=== PATIENT | female | born 1995 | race Caucasian/White ===

== ENCOUNTER 2020-02-18 18:03 | Emergency (ER) | payer OTHER | END 2020-02-18 19:21 | disposition home or self-care (01) | LOC: ERS 18:03 | DX: B34.9 Viral infection, unspecified (principal); F90.9 Attention-deficit hyperactivity disorder, unspecified type | CPT/HCPCS: 87804; 99283; U0001 ==

== ENCOUNTER 2021-07-21 05:40 | Emergency (ER) | payer OTHER, SELFPAY ==
[2021-07-21 07:16] LABS: #Basophils 0.1 thou/uL (0.0-0.2); #Monocytes 0.2 thou/uL (0.11-0.59); #Neutrophils 2.7 thou/uL (1.40-6.50); %Basophils 2.4 % (0.0-1.0); %Eosinophils 1.1 % (0.0-10.0); %Lymphocytes 24.4 % (21.0-51.0); %Monocytes 5.7 % (0.0-10.0); %Neutrophils 66.4 % (42.0-75.0); Hemoglobin 14.2 g/dL (12.0-16.0); Mean Corpuscular HGB CONC 34.1 g/dL (32.0-36.0); Mean Corpuscular Hemoglobin 30.5 pg (27.0-31.0); Mean Corpuscular Volume 89.6 fL (78.0-98.0); Mean Platelet Volume 7.2 fL (7.4-10.4); Platelet Count 138 thou/uL (130-400); RBC Distribution Width 11.9 % (11.5-14.5); Red Blood Cell (RBC) Count 4.66 mill/uL (4.20-5.40)
[2021-07-21 07:21] LABS: BHCG - Serum Negative (NEGATIVE); Pregs Control Background? CLEAR/WHITE (CLR/WHITE); Pregs Control Bar Appear? YES (CONTROL BAR)
[2021-07-21] MEDS ORDERED: Acetaminophen 500 MG TAB ONE (07:23)
[2021-07-21 07:35] LABS: ALT (SGPT) 21 U/L (8-55); AST (SGOT) 21 U/L (5-34); Albumin 4.1 g/dL (3.5-5.0); Alkaline Phosphatase 69 U/L (40-110); Anion Gap 12 mmol/L (10-20); BUN (Urea Nitrogen) 10 mg/dL (7.0-18.7); Bilirubin, Total 0.2 mg/dL (0.2-1.2); Calc. Creatinine Clearance 0 mL/min (70-130); Calcium 8.8 mg/dL (7.8-10.44); Carbon Dioxide 23 mmol/L (22-29); Chloride 104 mmol/L (98-107); Globulin 3.4 g/dL (2.4-3.5); Glucose 91 mg/dL (70-105); Potassium 4.2 mmol/L (3.5-5.1); Protein, Total 7.5 g/dL (6.0-8.3); Sodium 135 mmol/L (136-145)
[2021-07-21] MEDS ORDERED: Iopamidol-370 76% 500 ML 1 ML ONE (13:20)
== END 2021-07-21 09:10 | disposition home or self-care (01) ==
LOC: ERS 05:40
DX: U07.1 COVID-19 (principal); J45.909 Unspecified asthma, uncomplicated; Z79.899 Other long term (current) drug therapy
CPT/HCPCS: 36415; 71275; 80053; 84484; 84703; 85025; 93005; Q9967

== ENCOUNTER 2022-11-18 10:18 | Outpatient (CLI) | payer BC | END 2022-11-18 10:19 | disposition home or self-care (01) | LOC: DTY/OP 10:18 | PROVIDERS: ATTEND Surgery | DX: E66.01 Morbid (severe) obesity due to excess calories (principal); Z68.41 Body mass index [BMI] 40.0-44.9, adult | CPT/HCPCS: 97802 ==

== ENCOUNTER 2023-01-11 06:20 | Emergency (ER) | payer BC ==
[2023-01-11] MEDS ORDERED: Ketorolac Tromethamine 30 MG/ML VIAL ONE (06:44)
[2023-01-11] MEDS ORDERED: Lidocaine 1% w/Epinephrine 1:100K 20 ML VIAL ONE (06:44)
[2023-01-11] MEDS ORDERED: Morphine 10 MG/ML VIAL ONE (06:44)
== END 2023-01-11 07:40 | disposition home or self-care (01) ==
LOC: ERS 06:20
DX: L05.01 Pilonidal cyst with abscess (principal)
CPT/HCPCS: 10080; 87070; 87077; 87205; 96372; J1885; J2270